=== PATIENT | female | born 1955 | race Caucasian/White ===

== ENCOUNTER 2017-12-26 13:10 | Inpatient (IN) | payer MEDICAID ==
[~2017-12-26] VITALS: Ht 160 cm; Wt 66.7 kg
[2017-12-26] MEDS ORDERED: ONDANSETRON HCL 4MG/2ML INJ IV STA (14:03)
[2017-12-26] MEDS ORDERED: MORPHINE SULFATE 4 MG/ML CPJ (NOT FOR IM USE) IV STA (14:03)
[2017-12-26] MEDS ORDERED: DILTIAZEM HCL 5MG/ML 5ML VIAL IV NR (14:15)
[2017-12-26] MEDS ORDERED: ASPIRIN 81MG TABLET PO ONE (14:15)
[2017-12-26] MEDS ORDERED: NITROGLYCERIN OINT 1GM/INCH UDPKT TD ONE (14:15)
[2017-12-26 14:29] LABS: BASOPHILS % 1.1 % (0.0-2.0); EOSINOPHILS % 0.9 % (0.0-5.0); HEMATOCRIT. 40.5 % (36.0-48.0); HEMOGLOBIN. 13.3 g/dL (12.0-16.0); MEAN CORPUSCULAR HEMOGLOBIN 27.2 pg (28.0-32.0); MEAN CORPUSCULAR VOLUME 82.6 fL (81.0-99.0); MEAN PLATELET VOLUME 8.6 fl (7.4-10.4); MONOCYTES % 6.4 % (2.0-8.0); NEUTROPHILS % 56.6 % (40.0-76.0); PLATELET 183 x1000/uL (130-400); RED CELL DISTRIBUTION WIDTH 15.7 % (11.6-14.6)
[2017-12-26] MEDS ORDERED: DILTIAZEM HCL 90MG TABLET PO ONE (14:30)
[2017-12-26 14:35] LABS: CHLORIDE 109 mEq/L (98-107)
[2017-12-26 14:36] LABS: INR 1.1; PARTIAL THROMBOPLASTIN TIME 29.9 sec (23.4-31.0)
[2017-12-26 14:44] LABS: T4 FREE 1.15 ng/dL (0.76-1.46)
[2017-12-26] MEDS ORDERED: ENOXAPARIN 80MG/0.8ML SYR SUBCUT ONE (15:30)
[2017-12-26] MEDS ORDERED: METFORMIN HCL 500MG TABLET PO SCH (17:00)
[2017-12-26 17:32] VITALS: BP 114/66
[2017-12-26] MEDS ORDERED: IPRATROPIUM/ALBUTEROL 0.5-3(2.5)MG/3ML NEB INH PRN (17:45)
[2017-12-26] MEDS ORDERED: DOCUSATE SODIUM 100MG CAPSULE PO PRN (17:45)
[2017-12-26] MEDS ORDERED: ZOLPIDEM TARTRATE 5MG TABLET PO PRN (17:45)
[2017-12-26] MEDS ORDERED: MAGNESIUM/ALUMINUM HYDROXIDE/SIMETHICONE 30ML UDC PO PRN (17:45)
[2017-12-26] MEDS ORDERED: CLONIDINE 0.1MG TABLET PO PRN (17:45)
[2017-12-26] MEDS ORDERED: DIPHENHYDRAMINE 50MG/ML VIAL IV PRN (17:45)
[2017-12-26] MEDS ORDERED: LORAZEPAM 0.5MG TABLET PO PRN (17:45)
[2017-12-26] MEDS ORDERED: NA PHOS,M-B/NA PHOS,DI-BA ENEMA 118ML PR PRN (17:45)
[2017-12-26] MEDS ORDERED: ACETAMINOPHEN 325MG TABLET PO PRN (17:45)
[2017-12-26] MEDS ORDERED: ONDANSETRON HCL 4MG/2ML INJ IV PRN (17:45)
[2017-12-26] MEDS ORDERED: GUAIFENESIN 200MG/10ML SUGAR FREE UDC PO PRN (17:45)
[2017-12-26] MEDS ORDERED: NITROGLYCERIN 0.4MG TABLET SL SL PRN (17:45)
[2017-12-26] MEDS: DILTIAZEM HCL 60MG TABLET PO SCH (18:00)
[2017-12-26 18:01] VITALS: BP 114/78
[2017-12-26] MEDS ORDERED: RIVAROXABAN 20 MG TABLET PO SCH (18:01)
[2017-12-26] MEDS: CARVEDILOL 3.125 MG TABLET PO SCH (18:09)
[2017-12-26] MEDS ORDERED: RIVA20TA PO (18:15)
[2017-12-26] MEDS ORDERED: METF-414 PO (18:16)
[2017-12-26] MEDS ORDERED: ATOR10TA PO (18:16)
[2017-12-26] MEDS ORDERED: CARV3.1242 PO (18:17)
[2017-12-26] MEDS: KETOROLAC 15MG/ML VIAL IV PRN (18:32)
[2017-12-26 20:00] VITALS: BP 110/57
[2017-12-26] MEDS ORDERED: DEXTROSE 50% WATER 50ML SYRINGE IV PRN (21:00)
[2017-12-26] MEDS ORDERED: ATORVASTATIN CALCIUM 10MG TABLET PO SCH (21:00)
[2017-12-26] MEDS: BLOOD SUGAR DIAGNOSTIC STRIP TEST SCH (21:00)
[2017-12-26] MEDS: INSULIN LISPRO 100 UNITS/ML SUBCUT SCH (21:20)
[2017-12-26 22:00] VITALS: BP 100/52
[2017-12-26 22:54] LABS: CLARITY URINE CLOUDY (CLEAR); COLOR URINE DARK YELLOW (YELLOW); KETONES URINE 1+ (NEGATIVE); LEUKOCYTE ESTERASE URINE 2+ (NEGATIVE); NITRITE URINE POSITIVE (NEGATIVE); OCCULT BLOOD URINE NEGATIVE (NEGATIVE); PROTEIN URINE NEGATIVE (NEGATIVE); SPECIFIC GRAVITY URINE 1.023 (1.005-1.030)
[2017-12-26 23:20] LABS: *AMPHETAMINES SCREEN URINE NEGATIVE (NEGATIVE)
[2017-12-26 23:23] LABS: *BARBITURATES SCREEN URINE NEGATIVE (NEGATIVE); *BENZODIAZEPINES SCREEN URINE NEGATIVE (NEGATIVE); *COCAINE SCREEN URINE NEGATIVE (NEGATIVE)
[2017-12-26 23:24] LABS: CANNABINOID URINE SCREEN NEGATIVE (NEGATIVE); METHADONE URINE SCREEN NEGATIVE (NEGATIVE); OPIATES URINE SCREEN NEGATIVE (NEGATIVE); PHENCYCLIDINE URINE SCREEN NEGATIVE (NEGATIVE)
[2017-12-27] VITALS (14 sets, daily range): BP systolic 98–162; BP diastolic 18–81
[2017-12-27 02:09] LABS: CREATINE KINASE 49 IU/L (26-192)
[2017-12-27 02:10] LABS: CREATINE KINASE MB FRACTION < 1.0 ng/mL (0.5-3.6)
[2017-12-27] MEDS: KETOROLAC 15MG/ML VIAL IV PRN ×2 (04:54→11:35)
[2017-12-27] MEDS: BLOOD SUGAR DIAGNOSTIC STRIP TEST SCH ×2 (06:50→11:28)
[2017-12-27] MEDS: INSULIN LISPRO 100 UNITS/ML SUBCUT SCH ×2 (07:20→11:28)
[2017-12-27] MEDS: CARVEDILOL 3.125 MG TABLET PO SCH (08:02)
[2017-12-27] MEDS: DILTIAZEM HCL 60MG TABLET PO SCH ×2 (08:02)
[2017-12-27 08:18] LABS: BASOPHILS % 0.8 % (0.0-2.0); EOSINOPHILS % 2.1 % (0.0-5.0); HEMATOCRIT. 38.8 % (36.0-48.0); HEMOGLOBIN. 12.6 g/dL (12.0-16.0); LYMPHOCYTES % 42.8 % (20.0-50.0); MEAN CORPUSCULAR HEMOGLOBIN 27.2 pg (28.0-32.0); MEAN CORPUSCULAR VOLUME 83.4 fL (81.0-99.0); MEAN PLATELET VOLUME 9.1 fl (7.4-10.4); MONOCYTES % 7.2 % (2.0-8.0); NEUTROPHILS % 47.1 % (40.0-76.0); PLATELET 139 x1000/uL (130-400); RED BLOOD CELL COUNT 4.65 mill/uL (4.2-5.4); RED CELL DISTRIBUTION WIDTH 15.2 % (11.6-14.6)
[2017-12-27] MEDS ORDERED: PANTOPRAZOLE SODIUM 40 MG/VIAL IV SCH (09:00)
[2017-12-27 10:18] LABS: CHLORIDE 107 mEq/L (98-107)
[2017-12-27 10:27] LABS: CREATINE KINASE 53 IU/L (26-192)
[2017-12-27 10:29] LABS: CREATINE KINASE MB FRACTION < 1.0 ng/mL (0.5-3.6)
== END 2017-12-27 14:15 | disposition home or self-care (01) | DRG 201 ==
LOC: ER 14:59 → ENRESERV 15:20 → EDBEDREQ 15:26 → 3WST 17:25
PROVIDERS: ADMIT Internal Medicine; ATTEND Internal Medicine
DX: I47.1 Supraventricular tachycardia (principal); I11.9 Hypertensive heart disease without heart failure; I48.1 Persistent atrial fibrillation; E11.9 Type 2 diabetes mellitus without complications; E78.5 Hyperlipidemia, unspecified; I48.2 Chronic atrial fibrillation; Z79.01 Long term (current) use of anticoagulants; Z90.49 Acquired absence of other specified parts of digestive tract
CPT/HCPCS: 36415; 71045; 80048; 80305; 82550; 82553; 82962; 83735; 83880; 84439; 84443; 84484; 87077; 87186; 93005; 93306; 96374; 99291; C9113; J1650; J1815; J1885; J3490

== ENCOUNTER 2018-09-17 16:12 | Inpatient (IN) | payer MEDICAID ==
[~2018-09-17] VITALS: Ht 160 cm; Wt 69.2 kg
[~2018-09-17 16:12] MED LIST: ATOR10TA PO; CARV3.1242 PO; METF-414 PO; RIVA20TA PO
[2018-09-17] MEDS ORDERED: DILTIAZEM HCL 5MG/ML 5ML VIAL IV ONE (16:45)
[2018-09-17] MEDS ORDERED: ASPIRIN 81MG TABLET PO ONE (16:45)
[2018-09-17] MEDS ORDERED: DILTIAZEM HCL 30MG TABLET PO ONE (16:45)
[2018-09-17 17:03] LABS: EOSINOPHILS % 2.2 % (0.0-5.0); HEMATOCRIT. 40.1 % (36.0-48.0); HEMOGLOBIN. 13.2 g/dL (12.0-16.0); LYMPHOCYTES % 42.9 % (20.0-50.0); MEAN CORPUSCULAR HEMOGLOBIN 27.4 pg (28.0-32.0); MEAN CORPUSCULAR VOLUME 83.2 fL (81.0-99.0); MEAN PLATELET VOLUME 8.8 fl (7.4-10.4); MONOCYTES % 7.5 % (2.0-8.0); NEUTROPHILS % 46.4 % (40.0-76.0); PLATELET 158 x1000/uL (130-400); RED BLOOD CELL COUNT 4.82 mill/uL (4.2-5.4); RED CELL DISTRIBUTION WIDTH 14.8 % (11.6-14.6)
[2018-09-17 17:06] LABS: CHLORIDE 107 mEq/L (98-107)
[2018-09-17 17:09] LABS: PARTIAL THROMBOPLASTIN TIME 28.9 sec (23.4-31.0); PROTHROMBIN TIME 10.7 sec (9.6-11.0)
[2018-09-17 17:10] LABS: ETHANOL BLOOD < 10 mg/dL
[2018-09-17 18:02] LABS: CLARITY URINE CLEAR (CLEAR); COLOR URINE YELLOW (YELLOW); KETONES URINE NEGATIVE (NEGATIVE); LEUKOCYTE ESTERASE URINE 2+ (NEGATIVE); NITRITE URINE POSITIVE (NEGATIVE); OCCULT BLOOD URINE NEGATIVE (NEGATIVE); PH URINE 5.5 (4.5-8.0); PROTEIN URINE NEGATIVE (NEGATIVE); SPECIFIC GRAVITY URINE 1.004 (1.005-1.030); UROBILINOGEN URINE 0.2 E.U./dL (0.2-1.0)
[2018-09-17 18:18] LABS: *AMPHETAMINES SCREEN URINE NEGATIVE (NEGATIVE); *BARBITURATES SCREEN URINE NEGATIVE (NEGATIVE); *BENZODIAZEPINES SCREEN URINE NEGATIVE (NEGATIVE); *COCAINE SCREEN URINE NEGATIVE (NEGATIVE); CANNABINOID URINE SCREEN NEGATIVE (NEGATIVE); METHADONE URINE SCREEN NEGATIVE (NEGATIVE); OPIATES URINE SCREEN NEGATIVE (NEGATIVE); PHENCYCLIDINE URINE SCREEN NEGATIVE (NEGATIVE)
[2018-09-17] MEDS ORDERED: CEFTRIAXONE 1 G PREMIX 50 ML IV ONE (18:45)
[2018-09-17 20:00] VITALS: BP 118/65
[2018-09-17] MEDS ORDERED: CEFTRIAXONE 1 G PREMIX 50 ML IV SCH (23:45)
[2018-09-17] MEDS ORDERED: DEXTROSE 50% WATER 50ML SYRINGE IV PRN (23:45)
[2018-09-18] VITALS: BP 105/53
[2018-09-18 04:00] VITALS: BP 108/54
[2018-09-18] MEDS: BLOOD SUGAR DIAGNOSTIC STRIP TEST SCH ×2 (05:13→12:16)
[2018-09-18 05:54] LABS: BASOPHILS % 1.2 % (0.0-2.0); EOSINOPHILS % 2.9 % (0.0-5.0); HEMATOCRIT. 36.5 % (36.0-48.0); HEMOGLOBIN. 12.1 g/dL (12.0-16.0); LYMPHOCYTES % 47.5 % (20.0-50.0); MEAN CORPUSCULAR HEMOGLOBIN 27.4 pg (28.0-32.0); MEAN CORPUSCULAR VOLUME 82.9 fL (81.0-99.0); MEAN PLATELET VOLUME 8.9 fl (7.4-10.4); MONOCYTES % 10.1 % (2.0-8.0); NEUTROPHILS % 38.3 % (40.0-76.0); PLATELET 142 x1000/uL (130-400)
[2018-09-18 07:18] LABS: CHLORIDE 108 mEq/L (98-107)
[2018-09-18 07:29] LABS: LDL CHOLESTEROL 97 mg/dL (5-100)
[2018-09-18 07:32] LABS: HDL CHOLESTEROL 33 mg/dL (40-59)
[2018-09-18] MEDS: INSULIN LISPRO 100 UNITS/ML SUBCUT SCH ×2 (07:40→12:16)
[2018-09-18 08:00] VITALS: BP 112/72
[2018-09-18] MEDS: METFORMIN HCL 500MG TABLET PO SCH ×2 (08:14→17:37)
[2018-09-18] MEDS: FUROSEMIDE 40MG TABLET PO SCH (08:14)
[2018-09-18] MEDS: CARVEDILOL 12.5MG TABLET PO SCH ×2 (08:15→20:44)
[2018-09-18 12:00] VITALS: BP 121/77
[2018-09-18 16:19] VITALS: BP 104/58
[2018-09-18] MEDS ORDERED: RIVAROXABAN 20 MG TABLET PO SCH (17:00)
[2018-09-18] MEDS ORDERED: DIGOXIN 250MCG TABLET PO SCH (18:00)
[2018-09-18 20:00] VITALS: BP 96/63
[2018-09-18] MEDS ORDERED: CEFTRIAXONE 1 G PREMIX 50 ML IV SCH (21:00)
[2018-09-19] VITALS: BP 105/69
[2018-09-19 04:00] VITALS: BP 125/65
[2018-09-19 05:36] LABS: CHLORIDE 106 mEq/L (98-107)
[2018-09-19 06:01] LABS: BASOPHILS % 0.9 % (0.0-2.0); EOSINOPHILS % 2.4 % (0.0-5.0); HEMATOCRIT. 38.8 % (36.0-48.0); HEMOGLOBIN. 12.7 g/dL (12.0-16.0); LYMPHOCYTES % 44.3 % (20.0-50.0); MEAN CORPUSCULAR HEMOGLOBIN 27.1 pg (28.0-32.0); MEAN CORPUSCULAR VOLUME 82.6 fL (81.0-99.0); MEAN PLATELET VOLUME 9.1 fl (7.4-10.4); MONOCYTES % 7.4 % (2.0-8.0); PLATELET 157 x1000/uL (130-400); RED CELL DISTRIBUTION WIDTH 14.8 % (11.6-14.6)
[2018-09-19 08:00] VITALS: BP_SYST 122
[2018-09-19] MEDS: FUROSEMIDE 40MG TABLET PO SCH (09:23)
[2018-09-19] MEDS: METFORMIN HCL 500MG TABLET PO SCH (09:23)
[2018-09-19 12:00] VITALS: BP 127/49
[2018-09-19 12:27] VITALS: BP 127/49
[2018-09-19] MEDS ORDERED: CARVEDILOL 12.5MG TABLET PO SCH (21:00)
== END 2018-09-19 14:53 | disposition home or self-care (01) | DRG 720 ==
LOC: ER 16:12 → 8WST 18:41 → EDBEDREQ 18:44 → EDBEDREQTM 18:44 → ENRESERV 19:54
PROVIDERS: ADMIT Internal Medicine; ATTEND Internal Medicine
DX: A41.9 Sepsis, unspecified organism (principal); I48.1 Persistent atrial fibrillation; I11.9 Hypertensive heart disease without heart failure; E11.9 Type 2 diabetes mellitus without complications; E78.5 Hyperlipidemia, unspecified; I25.10 Atherosclerotic heart disease of native coronary artery without angina pectoris; N39.0 Urinary tract infection, site not specified; Z82.49 Family history of ischemic heart disease and other diseases of the circulatory system; Z79.84 Long term (current) use of oral hypoglycemic drugs; Z79.01 Long term (current) use of anticoagulants; I05.0 Rheumatic mitral stenosis; Z79.899 Other long term (current) drug therapy
CPT/HCPCS: 36415; 71045; 80048; 80061; 80305; 80320; 82962; 83036; 83605; 83735; 83880; 84443; 84484; 93005; 93306; 99285; J0696; J7050; G0480